=== PATIENT | male | born 1995 | race Caucasian/White ===

== ENCOUNTER 2016-10-03 09:09 | Emergency (ER) | payer BC ==
[~2016-10-03] VITALS: Ht 177.8 cm; Wt 75.0 kg
[2016-10-03] MEDS ORDERED: IBUP-2070 PO (09:12)
[2016-10-03] MEDS ORDERED: SUMA25TA9 PO (09:12)
[2016-10-03 12:12] VITALS: BP 110/72
[2016-10-03] MEDS ORDERED: AMOXICILLIN TRIHYDRATE 250 MG CAPSULE PO ONE (12:15)
== END 2016-10-03 12:14 | disposition home or self-care (01) ==
LOC: EMS 09:11
DX: H60.91 Unspecified otitis externa, right ear (principal); G43.909 Migraine, unspecified, not intractable, without status migrainosus; Z71.6 Tobacco abuse counseling
CPT/HCPCS: 99283; 99406